=== PATIENT | female | born 1985 | race Caucasian/White ===

== ENCOUNTER 2017-10-09 13:18 | Emergency (ER) | payer BC ==
[2017-10-09 14:40] LABS: BASOPHIL % 0.5 % (0-2); PLATELET COUNT 179 x10^3mcL (130-400); RED CELL DISTRIBUTION WIDTH 11.8 % (11.5-14.5); microscopic required? YES; urine erythrocyte 2+ (NEGATIVE)
[2017-10-09 16:28] VITALS: BP 118/86
== END 2017-10-09 16:28 | disposition home or self-care (01) ==
LOC: ED 13:18
PROVIDERS: Emergency Medicine Emergency Medical Services
DX: O02.1 Missed abortion (principal); Z3A.09 9 weeks gestation of pregnancy; Z88.2 Allergy status to sulfonamides
CPT/HCPCS: 36415; 87491; 87591